=== PATIENT | male | born 1955 | race Caucasian/White ===

== ENCOUNTER 2023-11-27 13:49 | Emergency (ER) | payer OTHER, SELFPAY ==
--- NOTE | ~2023-11-27 | CT_ITS ---
EXAMINATION: CT ABDOMEN AND PELVIS WITHOUT AND WITH CONTRAST CLINICAL INFORMATION: Pain with hematuria. COMPARISON: None available. TECHNIQUE: Noncontrast CT of the abdomen and pelvis is performed followed by split bolus contrast-enhanced images using 99 mL Omnipaque 350 contrast.? Postcontrast imaging is performed during the combined nephrogram and excretion phase. Sagittal and coronal reformatted images were obtained on the technologist's workstation for both the precontrast and postcontrast phases. This CT examination was performed using dose optimization techniques as appropriate, variously including the following: *Automated exposure control *Adjustment of mA and/or kV according to patient size (this includes techniques or standardized protocols for targeted exams where dose is matched to indication/reason for exam; i.e. extremities or head) *Use of iterative reconstruction technique DLP: 1026 mGy-cm FINDINGS: LUNG BASES: The visualized lung bases are unremarkable. LIVER, GALLBLADDER, AND BILIARY TREE: The liver is normal in size, shape, and attenuation. No focal hepatic lesion or biliary ductal dilatation is present. The gallbladder is unremarkable with no evidence of radiopaque gallstones, gallbladder wall thickening, or obvious pericholecystic inflammatory changes. PANCREAS: Unremarkable. SPLEEN: Unremarkable. ADRENAL GLANDS: Unremarkable. KIDNEYS AND URETERS: The kidneys are normal in size, shape, and attenuation. No hydronephrosis, hydroureter, or calculi seen. No perinephric stranding. Parapelvic cysts left kidney. No follow-up imaging is recommended for simple renal cyst.. BLADDER: Unremarkable. GASTROINTESTINAL TRACT: The small and large bowel are unremarkable. The appendix is unremarkable. ABDOMINAL WALL: No significant hernia is appreciated. LYMPH NODES: Normal. VASCULAR: Unremarkable. PELVIC VISCERA: Prostate measures 5.5 cm transverse. OSSEUS STRUCTURES: Degenerative changes of lumbar spine. Vacuum disc changes at L5-S1. Facet joint arthrosis at the lumbosacral junction. Small marginal bone spurs at the endplates of the vertebrae. Mild degenerative joint disease of the hip joints bilateral. CT/CT urogram IMPRESSION: 1. No acute abnormality CT scan abdomen pelvis. 2. Normal kidneys, ureter and bladder. 3. Prostatomegaly.
[2023-11-27 13:56] VITALS: BP 153/88; PULSE 72; RESP 16; TEMP 36.6; O2SAT 97; BMI 26.2
--- NOTE | 2023-11-27 13:56 | ED_ITS ---
HPI - General Adult General Chief complaint: Urogenital-Male Stated complaint: Blood in urine Time Seen by Provider: 11/27/23 15:34 Source: patient Mode of arrival: ambulatory Limitations: no limitations History of Present Illness HPI narrative: 68 yo male who presents to the ED with complaint of hematuria starting this AM. patient notes that he was urinating bright red blood but with time urine cleared somewhat and now looks orange. patient states that he has been experiencing very mild lower back pain and lower abdomen pain yesterday but not today. He also notes some mild dysuria today. He denies fever, chills, nausea, vomiting, urinary frequency, urgency or retention. Patient denies prior history of kidney stones or UTI. Patient takes low dose aspirin daily he is not on any other anticoagulation. Denies any recent trauma. Related Data Allergies Allergy/AdvReac Type Severity Reaction Status Date / Time No Known Allergies Allergy Verified 11/27/23 13:59 Review of Systems 2 Review of Systems: As noted in HPI Yes all other systems are reviewed and are negative PMFSH Social History Social History Advance Directives: No Advance Directives Information Provided: Yes Do you have a plan to hurt others: No Plan Physical Exam ED Vital Signs: Vital Signs - 24 hr 11/27/23 13:56 Temperature 97.8 F Pulse Rate 72 Respiratory Rate 16 Blood Pressure 153/88 H Pulse Oximetry 97 Oxygen Delivery Method Room Air BMI result Body Mass Index 26.2 Const General: healthy appearing, comfortable, no acute distress and alert Nutritional Appearance: well nourished Orientation/consciousness: patient oriented x3 Limitations: no limitations HENMT Head: Yes normal to inspection Ears: external ears normal General nose exam: Normal external nose present Mouth: Normal oral and palatal mucosa present and moist mucous membranes Eyes General: appearance normal, both eyes and all related structures Pupils: Equal, round and reactive pupils present Neck Neck: Yes normal visual inspection, Yes full ROM and Yes no lymphadenopathy Resp Effort & Inspection: normal respiratory effort and able to speak in complete sentences Auscultation: clear to auscultation bilaterally Cardio Rate: regular rate Rhythm: regular rhythm GI Inspection: Yes normal to inspection Palpation (GI): Soft to palpation and Other GI palpation findings present (non tender; not distended) Auscultation: normal bowel sounds General: Yes no CVA tenderness Back/Spine/Pelvis Back: no CVA tenderness Skin General skin exam: no rashes or lesions noted and turgor normal Neuro General: patient oriented x3 Cranial nerves: Yes Equal, round and reactive pupils present and Yes Bilaterally intact EOM present Cognition (Neuro): normal cognition Gait exam (Neuro): Normal gait present Motor exam (neuro): 5/5 motor strength present throughout Extrem General: Yes normal to inspection, Yes full ROM and Yes capillary refill normal Course Course Course Narrative: This is an RME: Additional HPI, ROS, PE not included below will be deferred to primary provider. 68 yo m presents with blood in urine since this morning. Denies blood thinners, rectal bleeding, pain. Reports mild abdominal pain and back pain. Medications Administered Discontinued Medications Generic Name Dose Route Start Last Admin Trade Name Freq PRN Reason Stop Dose Admin Iohexol 100 ml 11/27/23 16:25 11/27/23 16:25 Iohexol 350 Mg/Ml 100 Ml Infus..Btl IV 11/27/23 16:26 100 ml ONCE ONE Administration Medical Decision Making Medical Decision Making [facility] Narrative: 68 yo male who presents to the ED with complaint of gross hematuria HPI and physical exam as above. Upon presentation patient is hemodynamically stable, alert and oriented X3, afebrile, vital signes are reassuring; patient is not ill or toxic appearing, no acute distress. Laboratory results are without leukocytosis or significant metabolic derangement, kidney function is WNL. Urinalysis is notable for 3+ blood, however, no signs of pyuria. Urine culture is pending; would consider treating with abx if culture is positive. CT urogram showed: 1. No acute abnormality CT scan abdomen pelvis. 2. Normal kidneys, ureter and bladder. 3. Prostatomegaly. Discussed results of evaluation with the patient. The cause of hematuria is not quite clear at this time, however, doubt any acute etiologies that would require immediate intervention. Advised patient that he will be notified about urine culture results and treated if appropriate. advised on supportive care and outpatient follow up with PCP and urology for further management. Provided contact information for local urology office for patient to call and schedule an appointment. Discussed with the patient when to seek medical attention or return to the ED for re-evaluation. Patient expressed understanding and agreed to the treatment plan. Admission/Observation Consideration of admission/observation: Escalation of care including admission/observation considered Lab Data [facility] Lab Attestation statement: I reviewed the patient's lab results. 11/27/23 14:26 11/27/23 14:26 Labs: Lab Results 11/27/23 Range/Units 14:26 WBC 7.7 (4.8-10.8) X10*3/uL RBC 4.97 (4.60-5.80) X10*6/uL Hgb 14.8 (14.0-18.0) g/dl Hct 43.4 (42.0-52.0) % MCV 87.3 (80.0-98.0) fL MCH 29.8 (27.0-33.0) pg MCHC 34.1 (31.0-36.0) g/dl RDW 13.0 (11.0-16.0) % Plt Count 246 (160-400) X10*3/uL MPV 10.1 (9.4-12.4) fL Immature Gran % (Auto) 0.3 (0.0-0.4) % Neut % (Auto) 73.6 H (45-73) % Lymph % (Auto) 16.6 L (20-40) % [place] % (Auto) 7.7 (2-11) % Eos % (Auto) 1.4 (0-4) % Baso % (Auto) 0.4 (0-2) % Lymph # (Auto) 1.3 (1.2-4.9) X10*3/uL [place] # (Auto) 0.6 (0.1-1.2) X10*3/uL Eos # (Auto) 0.1 (0.0-0.4) X10*3/uL Baso # (Auto) 0.0 (0.0-0.2) X10*3/uL Abs Immat Gran (auto) 0.02 (0.00-0.03) X10*3/uL Absolute Neuts (auto) 5.6 (2.0-8.3) x10*3/uL Absolute Nucleated RBC 0.000 (0.0-0.012) X10*3/uL Nucleated RBC % (auto) 0.0 (0.0-0.2) /100WBC PT 12.1 (11.1-13.3) SEC INR 1.0 (0.9-1.1) Sodium 139 (135-145) mmol/L Potassium 3.9 (3.3-5.1) mmol/L Chloride 105 (96-108) mmol/L Carbon Dioxide 25 (22-29) mmol/L Anion Gap 13 (12-20) BUN 14 (9-16) mg/dL Creatinine 0.97 (0.5-1.4) mg/dL Estim Creat Clear Calc 76.3 Estimated GFR > 60 Random Glucose 114 (60-115) mg/dL Calcium 9.7 (8.4-10.2) mg/dL Magnesium 2.3 (1.6-2.6) mg/dL Total Bilirubin 0.8 (0.0-1.0) mg/dL AST 17 (5-37) U/L ALT 14 (0-40) U/L Alkaline Phosphatase 55 (39-117) U/L Total Protein 7.3 (6.5-8.0) g/dL Albumin 4.5 (3.5-5.0) g/dL Urine Color [place] A Urine Appearance Cloudy Urine pH 5.5 (5.0-9.0) Ur Specific [place] 1.020 (1.005-1.025) Urine Protein 30 (1+) H (Neg-Trace) mg/dL Urine Glucose (UA) Negative (Negative) mg/dL Urine Ketones Negative (Negative) mg/dL Urine Blood Large (3+) H (Negative) Urine Nitrite Negative (Negative) Ur Leukocyte Esterase Trace H (Negative) Urine RBC >20 H (0-2) /HPF Urine WBC 0-5 (0-5) /HPF Ur Squamous Epith Cells 0-2 (0-2) /HPF Urine Bacteria None Seen (None Seen) Hyaline Casts 0-2 (0-2) /LPF Independent Interpretation I performed an independent interpretation of an: CT Scan Radiology Impression Discussion of test interpretation with radiology: I have reviewed the radiologist's reading. Independent Historian Clinical information obtained from an independent historian. History obtained from or confirmed by: Spouse Discharge Plan Discharge Clinical Impression: Hematuria Patient Disposition: Home, Self-Care Instructions: Hematuria (ED) Additional Instructions: Your laboratory results and CT imaging showed no acute abnormalities that would require immediate intervention. CT imaging showed enlarged prostate, we recommend close follow up with urology specialist for further evaluation and management. Urinalysis was notable for blood in the urine, however, showed no obvious signs of infection. Urine culture is still in the process and we will notify you about the results if any abnormalities identifies. At home, make sure to drink plenty of fluids to stay hydrated. Follow up with your PCP for observation. Return to the ED for any new or concerning symptoms. Referrals: [facility] [Provider Group] Discharge Date/Time: 11/27/23 18:23 Print Language: Serbian
[2023-11-27 14:33] LABS: Basophils Percent Auto 0.4 % (0-2); Eosinophils Absolute Auto 0.1 X10*3/uL (0.0-0.4); Eosinophils Percent Auto 1.4 % (0-4); Hematocrit 43.4 % (42.0-52.0); Hemoglobin 14.8 g/dl (14.0-18.0); Imm Gran Abs Auto 0.02 X10*3/uL (0.00-0.03); Imm Gran Pct Auto 0.3 % (0.0-0.4); Lymphocytes Absolute Auto 1.3 X10*3/uL (1.2-4.9); Lymphocytes Percent Auto 16.6 % (20-40); MANUAL DIFF FLAG NO; Mean Corpuscular HGB Conc 34.1 g/dl (31.0-36.0); Mean Corpuscular Hemoglobin 29.8 pg (27.0-33.0); Mean Corpuscular Volume 87.3 fL (80.0-98.0); Mean Platelet Volume 10.1 fL (9.4-12.4); Monocytes Absolute Auto 0.6 X10*3/uL (0.1-1.2); Monocytes Percent Auto 7.7 % (2-11); Neutrophils Absolute Auto 5.6 x10*3/uL (2.0-8.3); Neutrophils Percent Auto 73.6 % (45-73); Platelet Count 246 X10*3/uL (160-400); Red Blood Count 4.97 X10*6/uL (4.60-5.80); White Blood Count 7.7 X10*3/uL (4.8-10.8)
[2023-11-27 14:44] LABS: Prothrombin Time 12.1 SEC (11.1-13.3)
[2023-11-27 14:53] LABS: Alanine Aminotransferase 14 U/L (0-40); Albumin Level 4.5 g/dL (3.5-5.0); Alkaline Phosphatase 55 U/L (39-117); Anion Gap 13 (12-20); Aspartate Amino Transferase 17 U/L (5-37); Bilirubin Total 0.8 mg/dL (0.0-1.0); Blood Urea Nitrogen 14 mg/dL (9-16); Calcium 9.7 mg/dL (8.4-10.2); Carbon Dioxide 25 mmol/L (22-29); Chloride 105 mmol/L (96-108); Creatinine Clr Calc Pharmacy 76.3; Estimated Glomerular Filt Rate > 60; Glucose Random 114 mg/dL (60-115); Magnesium 2.3 mg/dL (1.6-2.6); Potassium 3.9 mmol/L (3.3-5.1); Sodium 139 mmol/L (135-145); Total Protein 7.3 g/dL (6.5-8.0)
[2023-11-27 15:12] LABS: Appearance Urine Cloudy; Bacteria Urine None Seen (None Seen); Color Urine Orange; Glucose Urine UA Negative (Negative); Hyaline Casts Urine 0-2 /LPF (0-2); Leukocyte Esterase Urine Trace (Negative); Nitrite Urine Negative (Negative); PH 5.5 (5.0-9.0); RBC Urine >20 /HPF (0-2); Squamous Epithelial Cell Urine 0-2 /HPF (0-2); UMIC TRIGGER UACC YES; Urine Blood Large (3+) (Negative); Urine Ketones Negative (Negative); Urine Protein 30 (1+) mg/dL (Neg-Trace); WBC Urine 0-5 /HPF (0-5)
[2023-11-27] MEDS: iohexoL 350 MG/ML 100 ML INFUS..BTL IV (16:25)
[2023-11-27 18:21] VITALS: BP 148/76; PULSE 77; RESP 18; TEMP 36.3; O2SAT 97
== END 2023-11-27 18:23 | disposition home or self-care (01) ==
PROVIDERS: Physician Assistant; Emergency Provider Emergency Medicine
DX: R31.9 Hematuria, unspecified (principal); R30.0 Dysuria; M54.50 Low back pain, unspecified; R10.2 Pelvic and perineal pain; Z79.899 Other long term (current) drug therapy
CPT/HCPCS: 36415; 74178; 80053; 81001; 81003; 83735; 85025; 85610; 99282; 99284; Q9967

== ENCOUNTER 2023-11-29 08:56 | Outpatient (AMB) | payer OTHER, SELFPAY ==
[2023-11-29 08:57] VITALS: BP 108/62; PULSE 59; O2SAT 97; BMI 27.3
--- NOTE | 2023-11-29 08:57 | HO.NEPHOV_ITS ---
Vital Signs 11/29/23 08:57 Height 5 ft 10.5 in Weight 193 lb BMI 27.3 BP 108/62 Blood Pressure Location Lt brachial Position Sitting Pulse 59 Pulse Source Pulse Oximeter Pulse Oximetry (%) 97 Oxygen Delivery Method Room Air Intake Visit Reasons: HDF for urine in blood / Self referral Accompanied by: Spouse Allergies No Known Allergies Allergy (Verified 11/29/23 09:00) HPI Comments Details: 68-year-old man who was being enjoying reasonably good health , recently had an episode of painless hematuria. Prior to this episode he traveled in his car to attend a wedding for about 3 hours. Hematuria started 3 days ago, he went to the emergency room yesterday. He had a CT urogram which was unremarkable except for an enlarged prostate -measuring 5.5 cm The renal function was normal. Urinalysis showed deborah blood with RBCs and 30 mg proteinuria. Otherwise unremarkable. He has a history of atrial fibrillation. He has not on anticoagulation. He is on aspirin 81 mg a day. History is obstructive sleep apnea and uses CPAP machine No history of hypertension diabetes mellitus or kidney stones. No history of smoking No dysuria no line pain. No polyuria polydipsia. No shortness of breath and palpitations. No fever no rash. No edema. All systems were reviewed [facility] Social History (Updated 11/29/23 @ 09:00 by Sierra Berger) Patient Tobacco Use Status: Never used Tobacco Physical Exam Vital Signs: Last Vital Signs Pulse 59 11/29/23 08:57 Pulse Ox 97 11/29/23 08:57 Oxygen Delivery Method Room Air 11/29/23 08:57 BMI result Body Mass Index 27.3 Const General: comfortable Nutritional Appearance: well nourished Orientation/consciousness: patient oriented x3 HEENT Head: No normal to inspection Mouth: moist mucous membranes Neck Neck: Yes supple and Yes no JVD Resp Auscultation: clear to auscultation bilaterally, no rales and rub present Cardio Jugular venous distension: no JVD Palpation: no palpable S3 and no palpable S4 Heart sounds: no rubs GI Palpation (GI): Soft to palpation and nontender Percussion: No Fluid wave present General: Yes no CVA tenderness Back/Spine/Pelvis Back: no CVA tenderness Skin General skin exam: no rashes or lesions noted Neuro General: patient oriented x3 Extrem General: Yes no pedal edema and No clubbing Results Reviewed Results Reviewed: CT scan 11/27/23 KIDNEYS AND URETERS: The kidneys are normal in size, shape, and attenuation. No hydronephrosis, hydroureter, or calculi seen. No perinephric stranding. Parapelvic cysts left kidney. No follow-up imaging is recommended for simple renal cyst.. Nephrology Results: Hgb 14.8 g/dl (14.0-18.0) 11/27/23 WBC 7.7 X10*3/uL (4.8-10.8) 11/27/23 Plt Count 246 X10*3/uL (160-400) 11/27/23 Sodium 139 mmol/L (135-145) 11/27/23 Potassium 3.9 mmol/L (3.3-5.1) 11/27/23 Chloride 105 mmol/L (96-108) 11/27/23 Carbon Dioxide 25 mmol/L (22-29) 11/27/23 BUN 14 mg/dL (9-16) 11/27/23 Creatinine 0.97 mg/dL (0.5-1.4) 11/27/23 Calcium 9.7 mg/dL (8.4-10.2) 11/27/23 Urine Protein 30 (1+) mg/dL (Neg-Trace) H 11/27/23 Assessment & Plan Assessment & Plan (1) Hematuria: Code(s): R31.9 - Hematuria, unspecified Category: Medical Qualifiers: Hematuria type: gross Qualified Code(s): R31.0 - Gross hematuria Plan 68-year-old man with painless hematuria. We discussed both renal and non renal causes. Renal causes seem unlikely based on a clinical picture nevertheless we will obtain basic serology to rule this out. Extrarenal causes seem unlikely especially with a history of enlarged prostate. Workup as outlined below He needs a urology evaluation including cystoscopy. I shall make the referral. In the meantime I asked him to hold off on aspirin until hematuria subsides. Increase p.o. fluid intake. I have answered all his questions and returned to the office in the next 6 weeks Orders: Orders Anti DNA DS Antibody Today R31.0 - Gross hematuria Neutrophil Cytoplasma Ab Today R31.0 - Gross hematuria Myeloperoxidase Antibody Today R31.0 - Gross hematuria Protein Electrophoresis, Serum Today R31.0 - Gross hematuria Complement C3 Today R31.0 - Gross hematuria UA and rflx microscopic Today R31.0 - Gross hematuria Proteinase 3 PR3 Antibodies Today R31.0 - Gross hematuria Anti Glomerular Basement Memb Today R31.0 - Gross hematuria Complement C4 Today R31.0 - Gross hematuria Total Protein Urine Random Today R31.0 - Gross hematuria Creatinine Urine Today N05.9 - Unspecified nephritic syndrome with unspecified morphologic changes, R31.0 - Gross hematuria Urine Cytology Today R31.0 - Gross hematuria Urine Culture Today R31.0 - Gross hematuria Referrals Urology Referral R31.0 - Gross hematuria Coding Level of Care Code New Pt Level 4 (20678) Diagnoses Hematuria R31.0 Hematuria type: gross
== END 2023-11-29 09:24 | disposition home or self-care (01) ==
PROVIDERS: Visit Provider Internal Medicine Hypertension Specialist
DX: R31.0 Gross hematuria (principal)
CPT/HCPCS: 99204

== ENCOUNTER 2023-11-29 08:56 | Outpatient (REF) | payer OTHER, SELFPAY ==
[2023-11-29 12:16] LABS: Urine Cytology See Pathology rpt
[2023-11-29 12:26] LABS: Appearance Urine Clear; Color Urine Red; Glucose Urine UA Negative (Negative); Leukocyte Esterase Urine Trace (Negative); Nitrite Urine Negative (Negative); PH 7.5 (5.0-9.0); Specific Gravity - Urine <= 1.005 (1.005-1.025); UMIC TRIGGER UA YES; Urine Blood Large (3+) (Negative); Urine Ketones Negative (Negative); Urine Protein 30 (1+) mg/dL (Neg-Trace)
[2023-11-29 12:27] LABS: Bacteria Urine None Seen (None Seen); Hyaline Casts Urine 0-2 /LPF (0-2); RBC Urine >20 /HPF (0-2); Squamous Epithelial Cell Urine 0-2 /HPF (0-2); WBC Urine 0-5 /HPF (0-5)
[2023-11-29 12:44] LABS: Creatinine Urine 21.16 mg/dL; Total Protein Urine Random 11 mg/dL (<12)
[2023-11-30 14:03] LABS: Neutrophil Cyto Ab Screen NEGATIVE (NEGATIVE)
[2023-11-30 14:08] LABS: Anti DNA DS Antibody <1 IU/mL; Anti Glomerular Basement Memb <1.0 AI; Myeloperoxidase Antibody <1.0 AI; Proteinase 3 PR3 Antibodies <1.0 AI
[2023-11-30 14:54] LABS: Prot Elec - Albumin 4.4 g/dL (3.8-4.8); Prot Elec - Alpha1 0.2 g/dL (0.2-0.3); Prot Elec - Alpha2 0.6 g/dL (0.5-0.9); Prot Elec - Beta 1 0.4 g/dL (0.4-0.6); Prot Elec - Beta 2 0.3 g/dL (0.2-0.5); Prot Elec - Gamma 0.9 g/dL (0.8-1.7); Prot Elec - Total Protein 6.8 g/dL (6.1-8.1)
[2023-12-01 13:53] LABS: Complement C3 117 mg/dL (82-185)
== END 2023-11-29 08:57 | disposition home or self-care (01) ==
LOC: HO.LAB 08:56
PROVIDERS: PCP Physician Assistant Medical; Visit Provider Internal Medicine Hypertension Specialist
DX: R31.0 Gross hematuria (principal); N05.9 Unspecified nephritic syndrome with unspecified morphologic changes
CPT/HCPCS: 36415; 81001; 82570; 83520; 84156; 84165; 86021; 86036; 86160; 86225; 87086; 88112

== ENCOUNTER 2024-01-10 11:07 | Outpatient (AMB) | payer OTHER, SELFPAY ==
[2024-01-10 11:09] VITALS: BP 110/66; PULSE 63; O2SAT 97; BMI 26.9
--- NOTE | 2024-01-10 11:09 | HO.NEPHOV ---
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 Prior to this episode he traveled in his car to attend a wedding for about 3 hours. Hematuria started 3 days ago, he went to the emergency room yesterday. He had a CT urogram which was unremarkable except for an enlarged prostate -measuring 5.5 cm The renal function was normal. Urinalysis showed deborah blood with RBCs and 30 mg proteinuria. Otherwise unremarkable. He has a history of atrial fibrillation. He has not on anticoagulation. He is on aspirin 81 mg a day. History is obstructive sleep apnea and uses CPAP machine No history of hypertension diabetes mellitus or kidney stones. No history of smoking No dysuria no line pain. No polyuria polydipsia. No shortness of breath and palpitations. No fever no rash. No edema. All systems were reviewed 01/10/2024. Seen by Urology. Cystoscopy was done by Dr. Basurto. So far cytology has been negative. He had a stent placed on the ureter and later removed. No definite etiology has been determined yet. he has going for a follow-up ultrasonogram. No further hematuria. [facility] Social History Patient Tobacco Use Status: Never used Tobacco Physical Exam Vital Signs: Last Vital Signs Pulse 63 01/10/24 11:09 BP 110/66 01/10/24 11:09 Pulse Ox 97 01/10/24 11:09 Oxygen Delivery Method Room Air 01/10/24 11:09 BMI result Body Mass Index 26.9 Results Reviewed Nephrology Results: Hgb 14.8 g/dl (14.0-18.0) 11/27/23 WBC 7.7 X10*3/uL (4.8-10.8) 11/27/23 Plt Count 246 X10*3/uL (160-400) 11/27/23 Sodium 139 mmol/L (135-145) 11/27/23 Potassium 3.9 mmol/L (3.3-5.1) 11/27/23 Chloride 105 mmol/L (96-108) 11/27/23 Carbon Dioxide 25 mmol/L (22-29) 11/27/23 BUN 14 mg/dL (9-16) 11/27/23 Creatinine 0.97 mg/dL (0.5-1.4) 11/27/23 Calcium 9.7 mg/dL (8.4-10.2) 11/27/23 Urine Protein 30 (1+) mg/dL (Neg-Trace) H 11/29/23 Urine Creatinine 21.16 mg/dL 11/29/23 Assessment & Plan Assessment & Plan (1) Hematuria: Code(s): R31.9 - Hematuria, unspecified Category: Medical Qualifiers: Hematuria type: gross Qualified Code(s): R31.0 - Gross hematuria (2) Hematuria of unknown etiology: Code(s): R31.9 - Hematuria, unspecified Category: Medical Plan 68-year-old man with painless hematuria. Hematuria is primarily due to urological cause. Status post cystoscopy. Exact etiology is yet to be determined. Serological workup was negative;no evidence of glomerulonephritis. She will repeat renal panel today along with CBC. Encouraged to follow up with Urology. Shall l see him again as needed. Orders: Orders Complete Blood Count no Diff Today R31.9 - Hematuria, unspecified Basic Metabolic Panel Today R31.9 - Hematuria, unspecified Coding Level of Care Code Est Pt Level 4 (28298) Diagnoses Hematuria R31.0 Hematuria type: gross Hematuria of unknown etiology R31.9
== END 2024-01-10 11:36 | disposition home or self-care (01) ==
PROVIDERS: Visit Provider Internal Medicine Hypertension Specialist
DX: R31.0 Gross hematuria (principal); R31.9 Hematuria, unspecified
CPT/HCPCS: 99214

== ENCOUNTER → 2024-01-10 11:07 | Outpatient (BNVA) | payer OTHER, SELFPAY | PROVIDERS: Visit Provider Internal Medicine Hypertension Specialist | DX: R31.0 Gross hematuria (principal) ==

== ENCOUNTER 2024-01-10 11:38 | Outpatient (REF) | payer OTHER, SELFPAY ==
[2024-01-10 18:28] LABS: Appearance Urine Turbid; Color Urine Yellow; Glucose Urine UA Negative (Negative); Leukocyte Esterase Urine Negative (Negative); Nitrite Urine Negative (Negative); PH 5.5 (5.0-9.0); UMIC TRIGGER UA YES; Urine Blood Trace (Negative); Urine Ketones Negative (Negative); Urine Protein Negative (Neg-Trace)
[2024-01-10 18:47] LABS: Hemoglobin 14.8 g/dl (14.0-18.0); Mean Corpuscular HGB Conc 33.6 g/dl (31.0-36.0); Mean Corpuscular Hemoglobin 29.9 pg (27.0-33.0); Mean Corpuscular Volume 88.9 fL (80.0-98.0); Platelet Count 255 X10*3/uL (160-400); Red Blood Count 4.95 X10*6/uL (4.60-5.80); Red Cell Distribution Width 12.8 % (11.0-16.0); White Blood Count 6.2 X10*3/uL (4.8-10.8)
[2024-01-10 18:57] LABS: Bacteria Urine None Seen (None Seen); Hyaline Casts Urine 0-2 /LPF (0-2); RBC Urine 0-2 /HPF (0-2); Squamous Epithelial Cell Urine 0-2 /HPF (0-2); WBC Urine 0-5 /HPF (0-5)
[2024-01-10 19:03] LABS: Anion Gap 11 (12-20); Blood Urea Nitrogen 15 mg/dL (9-16); Calcium 9.5 mg/dL (8.4-10.2); Carbon Dioxide 27 mmol/L (22-29); Chloride 104 mmol/L (96-108); Estimated Glomerular Filt Rate > 60; Glucose Random 86 mg/dL (60-115); Potassium 4.1 mmol/L (3.3-5.1); Sodium 138 mmol/L (135-145)
== END 2024-01-10 11:39 | disposition home or self-care (01) ==
LOC: HO.HKASLDS 11:38
PROVIDERS: Visit Provider Internal Medicine Hypertension Specialist
DX: R31.9 Hematuria, unspecified (principal)
CPT/HCPCS: 36415; 80048; 81001; 85027

== ENCOUNTER 2025-07-02 09:54 | Outpatient (AMB) | payer OTHER, SELFPAY ==
--- OUTSIDE RECORDS SUMMARY | 2025-07-01 10:45 | XMS_ITS | Encounter Summary ---
Author Organization [facility] Address [address] [place] [address] Care Team Providers Care Manager Shell Name Role Phone Keny Monzon MD Primary Care Provider [phone] Reason for Visit * Reason Comments Follow-up Six mo f/u Encounter Details Date Type Department Care Team (Late st Contact Info) Description 07/01/2025 10:45 AM EST Office Visit Adult Medicine [address] [phone] Krystal Vizcarra PA [address] [place] [address] Benign prostatic hyperplasia without lower urinary tract symptoms (Primary Dx); Mixed hyperlipidemia; Paroxysmal A-fib (CMS/HCC V24, CMS/HCC V28); Prediabetes; KALEB on CPAP; Tremor of both hands; Screening for diabetes mellitus; Screening cholesterol level; Need for prophylactic vaccination and inoculation against influenza Social History Tobacco Use Types Packs/Day Years Used Date Smoking Tobacco: Never Smokeless Tobacco: Never Tobacco Cessation:Counseling Given: Not Answered Alcohol Use Standard Drinks/Week Comments No 0 (1 standard drink = 0.6 oz pur e alcohol) Housing Instability Answer Date Recorde d Are you worried that in the next 2 months you may not have stable housing? No 12/11/2024 Food Access & Nutrition Answer Date Rec orded Do you have access to a vari ety of food including fruits and vegetables? Yes 12/11/2024 Access to Healthcare Answer Date Record ed Within the last 3 months, ho w many times did you visit the emergency department for your medical care? 0 12/11/2024 Health Literacy Answer Date Recorded How often do you need to hav e someone help you when you read instructions, pamphlets, or other written material from your doctor or pharmacy? Never 12/11/2024 Caregiver: How often do you need to have someone help you when you read instructions, pamphlets, or other written material from your doctor or pharmacy? Not on file 12/11/2024 Financial Risk Answer Date Recorded How hard is it for you to pa y for the very basics like food, housing, medical care, and air conditioning / heating? Patient declined 12/11/2024 Transportation Answer Date Recorded Has the lack of transportati on kept you from meetings, work, or from getting things needed for daily living? No Has the lack of transportati on kept you from medical appointments or from getting medications? No 12/11/2024 Social Isolation Answer Date Recorded How often do you feel lonely or isolated from th ose around you? Never 12/11/2024 Food Risk Answer Date Recorded Within the past 12 months we worried whether our food would run out before we got money to buy more. Never true 12/11/2024 Within the past 12 months th e food we bought just didn't last and we didn't have money to get more. Never true 12/11/2024 Dependent Care Answer Date Recorded Do you need help finding or paying for care for your loved ones. For example, child and adolescent therapist or elderly care for an older adult? No 12/11/2024 Education Answer Date Recorded Do you think completing more education or training, like finishing a GED, going to college, or learning a trade, would be helpful for you? No 12/11/2024 Employment and Income Answer Date Recor ded During the last four weeks, have you been actively looking for work? No 12/11/2024 Living Situation Answer Date Recorded What is your living situation? Unrecognized valu e 12/11/2024 Sex and Gender Information Value Date Recorded Sex Assigned at Not on file Legal Sex Male 1:36 PM EST Gender Identity Not on file Sexual Orientation Not on file documented as of this encounter Last Filed Vital Signs Vital Sign Reading Time Taken Comments Blood Pressure 123/69 07/01/2025 10:19 AM EST Pulse 59 07/01/2025 10:19 AM EST Temperature 35.9 C (96.7 F) 07/01/2025 10:19 AM EST Respiratory Rate 15 07/01/2025 10:19 AM EST Oxygen Saturation 99% 07/01/2025 10:19 AM EST Inhaled Oxygen Concentration - - Weight 91.4 kg (201 lb 6.4 oz) 07/01/2025 10:19 AM EST Height 180.3 cm (5' 11 ) 07/01/2025 10:19 AM EST Body Mass Index 28.09 07/01/2025 10:19 AM EST documented in this encounter Progress Notes * NICHO Jain - 07/01/2025 10:45 AM EST CHIEF COMPLAINT: Follow-up (Six mo f/u) IDENTIFIER: Lukas Mccarthy is a 69 y.o. old male. Past medical history: paroxysmal A-fib, hyperlipidemia, prediabetes, KALEB on CPAP, BPH, renal calculi, left knee replacement surgery History of Present Illness The patient is a 69-year-old male with a history of paroxysmal atrial fibrillation and hyperlipidemia. 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 for PSA checks Benign Prostatic Hyperplasia (BPH) - Has BPH Orthopedic Issues - Recently experienced left elbow pain, left wrist pain, and bilateral carpal tunnel syndrome, managed by pain management specialist - Reports arthritis in one hand and tendinitis in the other, managed with braces - Brace for tendinitis is more effective - Cortisone injection discussed but not scheduled - Pain well-managed Neurological Concerns - Scheduled to see neurologist tomorrow for involuntary hand twitch observed by Other Information - Monitors morning blood glucose, typically 106-107 - 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 Last colonoscopy was 09/17/2027 and repeat in 10 years. Report has been printed and sent for scanning. He follows with urologist for PSA checks. He is up-to-date for Td vaccine and pneumonia vaccine. Flu vaccination was updated today. ROS: See HPI PAST MEDICAL HISTORY: Patient Active Problem List Diagnosis Date Noted Benign prostatic hyperplasia without lower urinary tract symptoms 12/18/2024 Prediabetes 12/18/2024 Osteoarthritis of left knee 06/20/2024 Wears hearing aid 05/01/2024 KALEB on CPAP 05/01/2024 Mixed hyperlipidemia 05/01/2024 Paroxysmal A-fib ([facility] V24, [facility] V28) 06/12/2023 Overweight 12/23/2015 Impaired fasting glucose 02/20/2006 Osteoarthritis 11/25/2005 Surgical History[1] SOCIAL HISTORY: Social History Tobacco Use Smoking status: Never Smokeless tobacco: Never Substance Use Topics Alcohol use: No FAMILY HISTORY: Family History[2] Family Status Relation Name Status Father (Not Specified) No partnership data on file MEDICATIONS DISCONTINUED/REORDERED: Medications Discontinued During This Encounter Medication Reason predniSONE (DELTASONE) 10 mg tablet Therapy completed ACTIVE MEDICATIONS: Medications Taking[3] ALLERGIES: Current Allergies[4] PHYSICAL EXAM: Vitals: 07/01/25 1019 BP: 123/69 Pulse: 59 Resp: 15 Temp: 35.9 ??C (96.7 ??F) SpO2: 99% Physical Exam Constitutional: Appearance: Normal appearance. He is not ill-appearing. Cardiovascular: Rate and Rhythm: Normal rate and regular rhythm. Heart sounds: No murmur heard. Pulmonary: Effort: Pulmonary effort is normal. Breath sounds: Normal breath sounds. No wheezing. Musculoskeletal: Right lower leg: No edema. Left lower leg: No edema. Neurological: Mental Status: He is alert. LABS: Results for orders placed or performed in visit on 12/26/24 Thyroid stimulating hormone with reflex to free t4 and free t3 Collection Time: 12/26/24 7:33 AM Result Value Ref Range TSH 3.12 0.40 - 4.00 mcIU/mL Lipid panel with reflex to direct LDL Collection Time: 12/26/24 7:33 AM Result Value Ref Range Cholesterol 160 0 - 200 mg/dL Triglycerides 57 0 - 150 mg/dL HDL 59 >=40 mg/dL LDL Calculated 90 0 - 100 mg/dL VLDL Cholesterol Neal 11.4 mg/dL Non HDL Chol. (LDL+VLDL) 101 <145 mg/dL Chol/HDL Ratio 2.7 0.0 - 4.4 Magnesium Collection Time: 12/26/24 7:33 AM Result Value Ref Range Magnesium 2.2 1.9 - 2.6 mg/dL Basic metabolic panel Collection Time: 12/26/24 7:33 AM Result Value Ref Range Sodium 142 133 - 145 mmol/L Potassium 4.6 3.5 - 5.5 mmol/L Chloride 110 96 - 110 mmol/L CO2 27 21 - 32 mmol/L Anion Gap 5 3 - 11 Glucose 119 (H) 70 - 100 mg/dL BUN 17 5 - 25 mg/dL Creatinine 0.83 0.70 - 1.30 mg/dL eGFR 95 >=60 mL/min/1.73m2 BUN/Creatinine Ratio 20.5 Calcium 9.3 8.5 - 10.5 mg/dL Hemoglobin A1c Collection Time: 12/26/24 7:33 AM Result Value Ref Range Hemoglobin A1C 5.4 <6.5 % Mean Bld Glu Estim. 108 mg/dL IMAGING: No recent imaging IMPRESSION: 1. Benign prostatic hyperplasia without lower urinary tract symptoms 2. Mixed hyperlipidemia 3. Paroxysmal A-fib (CMS/HCC V24, CMS/HCC V28) 4. Prediabetes 5. KALEB on CPAP 6. Tremor of both hands 7. Screening for diabetes mellitus 8. Screening cholesterol level 9. Need for prophylactic vaccination and inoculation against influenza Assessment & Plan 1. Paroxysmal atrial fibrillation: Stable. 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 - Refill Metoprolol 25 mg AM, 12.5 mg PM. 2. Hyperlipidemia: Stable. LDL 90. - Refill Lipitor 10 mg daily. 3. Benign prostatic hyperplasia: Stable. - Urologist follow-up for PSA checks has been normal. 4. Arthritis and tendinitis of hand and wrist: Improved - Braces helpful. - Cortisone shot if needed. - Continue follow up with orthopedic as needed. 5. Hand tremor - Neurologist appointment tomorrow. 6. Prediabetes: Stable. Blood sugar 106-107 AM. - Continue monitoring and current lifestyle. 7. KALEB - he is compliant with CPAP Follow-up: Schedule next appointment for routine physical and lab work one week prior. I have obtained verbal consent from Lukas Mccarthy prior to the recording. I have advised Lukas Mccarthy that he may refuse the recording and require the recording to be turned off at any time during this encounter. I have applied the code G2211 to this patient's visit as part of the primary care provider team dealing with multiple comorbid conditions, coordinating with the referrals and health maintenance. All questions and concerns were addressed. Lukas Mccarthy verbalizes understanding and agrees with this treatment plan. Patient was reminded to call or return to the office if any new or existing problems arise. Orders Placed This Encounter Procedures Influenza trivalent, 0.5mL (Fluad) 65yo and older Lipid panel with reflex to direct LDL Hemoglobin A1c CBC and differential Basic metabolic panel INFLUENZA TRIVALENT, 0.5ML (FLUAD) 65YO AND OLDER NICHO Jain on 07/01/2025 at 1:00 PM EST Today's documentation was made using voice recognition software.This note may contain grammatical errors secondary to this software. [1] Past Surgical History: Procedure Laterality Date COLONOSCOPY 10/02/08 PROCEDURE: VT COLONOSCOPY STOMA DX INCLUDING COLLJ SPEC SPX; COMMENT: Up to cecum, regular preparation, normal colon exam [2] Family History Problem Relation Name Age of Onset Heart attack Father Hypertension Father [3] Outpatient Medications Marked as Taking for the 07/01/25 encounter (Office Visit) with NICHO Jain Medication Sig Dispense Refill atorvastatin (LIPITOR) 10 mg tablet TAKE 1 TABLET BY MOUTH 1 TIME EACH DAY. 90 tablet 1 metoprolol tartrate (LOPRESSOR) 25 mg tablet TAKE 1 TABLET BY MOUTH EVERY MORNING AND 1/2 TAB IN THE EVENING [4] No Known Allergies documented in this encounter Plan of Treatment Upcoming Encounters Date Type Department Care Team (Late st Contact Info) Description 12/31/2025 11:30 AM EDT Office Visit Adult Medicine [address] [phone] Keny Monzon MD [address] [place] [address] Scheduled Orders Name Type Priority Associated Diagnoses Orde r Schedule Lipid panel with reflex to direct LDL Lab Routine Benign prostatic hyperplasia without lower urinary tract symptoms Mixed hyperlipidemia Paroxysmal A-fib (CMS/HCC V24, CMS/HCC V28) Prediabetes KALEB on CPAP Need for prophylactic vaccination and inoculation against influenza Screening cholesterol level Screening for diabetes mellitus Expected: 12/30/2025, Expires: 07/01/2026 Hemoglobin A1c Lab Routine Benign prostatic hyperplasia without lower urinary tract symptoms Mixed hyperlipidemia Paroxysmal A-fib (CMS/HCC V24, CMS/HCC V28) Prediabetes KALEB on CPAP Need for prophylactic vaccination and inoculation against influenza Screening cholesterol level Screening for diabetes mellitus 1 Occurrences starting 07/01/2025 until 07/01/2026 CBC and differential Lab Routine Benign prostatic hyperplasia without lower urinary tract symptoms Mixed hyperlipidemia Paroxysmal A-fib ([facility] V24, [facility] V28) Prediabetes KALEB on CPAP Need for prophylactic vaccination and inoculation against influenza Screening cholesterol level Screening for diabetes mellitus 1 Occurrences starting 07/01/2025 until 07/01/2026 Basic metabolic panel Lab Routine Benign prostatic hyperplasia without lower urinary tract symptoms Mixed hyperlipidemia Paroxysmal A-fib ([facility] V24, [facility] V28) Prediabetes KALEB on CPAP Need for prophylactic vaccination and inoculation against influenza Screening cholesterol level Screening for diabetes mellitus 1 Occurrences starting 07/01/2025 until 07/01/2026 documented as of this encounter Visit Diagnoses Diagnosis Benign prostatic hyperplasia without lower urinary tract symptoms- Primary Mixed hyperlipidemia Paroxysmal A-fib ([facility] V24, [facility] V28) Prediabetes Other abnormal glucose KALEB on CPAP Tremor of both hands Screening for diabetes mellitus Screening cholesterol level Screening for lipoid disorders Need for prophylactic vaccination and inoculation against influenza documented in this encounter Discontinued Medications Medication Sig Discontinue Reason Start Date End Da te predniSONE (DELTASONE) 10 mg tablet Take 2 tabs PO daily for 3 days then 1 tab PO daily for 4 days Therapy completed 04/14/2025 07/01/2025 documented as of this encounter Orders Immunization/Injection Count Last Ordered Date First Ordered Date INFLUENZA TRIVALENT, 0.5ML ( FLUAD) 65YO AND OLDER 1 07/01/2025 documented in this encounter Additional Health Concerns Assessment Noted Time PHQ-9 Depression Total Score: 0 12/12/19 25 10:02 AM EDT documented as of this encounter Care Teams Manager Shell Relationship Specialty Start Date End Date Keny Monzon MD [address] [place] [address] PCP - General Internal Medicine 11/19/21 documented as of this encounter
--- NOTE | 2025-07-02 10:24 | A.OFFVIS_ITS ---
Intake Visit Reasons: tremor both hands Allergies No Known Allergies Allergy (Verified 07/01/25 09:33) Medication List - Last Reconciled 07/02/25 by Jina Quezada MD atorvastatin 10 mg PO DAILY metoprolol tartrate 25 mg PO BID HPI Comments Details: This is a generally healthy 69-year-old man with a history of paroxysmal atrial fibrillation in the past for which she takes metoprolol 25 mg in the morning and 12.5 in the evening. Mild hyperlipidemia on atorvastatin 10 mg a day. Around October 2024 he started experiencing pain and numbness with tingling in both hands with the right being worse than the left. He was prescribed braces which seemed to have helped. He also has point tenderness and pain in the left 1st carpometacarpal joint of the thumb. In the summertime his noted that he was twitching his fingers around it was not a rhythmic tremor but since then it has stopped. His hand symptoms are better with the hand brace and wrist splint. 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 [facility] Medical History (Updated 07/02/25 @ 10:32 by Jina Quezada MD) Paroxysmal A-fib KALEB on CPAP Tremor of both hands Social History Patient Tobacco Use Status: Never used Tobacco Review of Systems ENT Reports hearing loss Musc Reports arthralgias and Reports numbness Neuro Details: Numbness and tingling in the hands, right worse than left Reports numbness and Reports paresthesias Physical Exam Neuro Other: ?Mini Mental Status Exam Level of Consciousness:?Alert.? Orientation:?Knows correct year, month, date, day and season.?Knows correct city, county and state. Knows correct location and floor.? Registration:?Able to register 3 objects.? Attention:?Serial 7's performed accurately.? Recall:?Able to recall 3 out of 3 objects.? Language:?Normal spontaneous speech, fluency, repetition, naming, comprehension, reading, and writing.? Total Score:?30/30.? Neurological Abnormal neurological findings:??none.? Mental Status:?Alert and oriented X 3.?Normal attention, orientation, memory, and affect.? Cranial Nerves:?Pupils are equal, round and reactive to light. Fundoscopy shows normal disc bilaterally. External occular muscles are intact. Visual alonso are full, no ptosis. Face is symmetrical, no facial weakness or droop. Facial sensations are normal. Tongue protrudes in midline. Palate elevates sy mmetrically. Shoulder shrugging is normal.? Motor Examination:?Normal muscle tone, bulk and strength.?No atrophy or fasciculations.?No drift of the extended upper extremities.?Deep tendon reflexes are 2+.?Plantars are flexor.? Motor Strength:? Proximal Muscles (out of 5):?5 Distal Muscles (out of 5):?5 Neck Flexors (out of 5):?5 Neck Extensors (out of 5):?5 Deltoid (out of 5):?5 Biceps (out of 5):?5 Triceps (out of 5):?5 Serratus Anterior (out of 5):?5 Wrist Extensors (out of 5):?5 APB (out of 5):?5 Finger Spread (out of 5):?5 Ileopsoas (out of 5):?5 Quadriceps (out of 5):?5 Hamstrings (out of 5):?5 Tibialis Anterior (out of 5):?5 Peronei (out of 5):?5 EDB (out of 5):?5 Gastrocnemius (out of 5):?5 Straight Leg Raising:?90 degrees.? Sensory Exam:?Normal light touch, temperature, pinprick, vibration and joint-position sensations.?Rhomberg sign is absent.? Coordination:?No ataxia,?no titubation,?rdxsth-ea-thyo, ufrz-ibvw-hmwi test, and rapid alternating movements were normal.? Gait Exam:?Within normal limits.? Cerebellar Signs:?Qbawzt-cr-nkrk and nulc-mg-hurs is normal.?No dysdiadochokinesia.? Extrapyramidal System:?No tremor or?rigidity, normal facial expressions.?No bradykinesia. No bradyphrenia. Normal arm swing and posture. No propulsion or retropulsion.? Speech:?Normal,?no dysphasia or dysarthria.? General Examination GENERAL APPEARANCE:??normal,?in no acute distress?,?normal,?in no acute distress.? HEAD:??normocephalic,?atraumatic.? EYES:??sclera non-icteric,?conjunctiva clear.? EARS:??auditory canal clear,?tympanic membrane intact, clear.? NOSE:??no lesions.? ORAL CAVITY:??gums normal,?mucosa moist,?no lesions.? THROAT:??clear.? NECK/THYROID:??no cervical lymphadenopathy,?thyroid normal,?neck supple, full range of motion,?no carotid bruit.? SKIN:??no rashes,?no significant birthmarks.? HEART:??S1, S2 normal,?no murmurs?,?S1, S2 normal,?no murmurs.? LUNGS:??clear anteriorly and posteriorly?,?clear anteriorly and posteriorly.? CHEST:??no gross rib deformity,?clear to auscultation.? BACK:??normal exam of spine.? MUSCULOSKELETAL:??normal.? EXTREMITIES:??no edema?,?no edema.? PERIPHERAL PULSES:??normal.? PSYCH:??alert, oriented,?cognitive function intact,?cooperative with exam?,?alert, oriented,?cognitive function intact,?cooperative with exam.? Assessment & Plan Assessment & Plan (1) Carpal tunnel syndrome on both sides: Code(s): G56.03 - Carpal tunnel syndrome, bilateral upper limbs Category: Medical (2) Osteoarthritis involving joints of upper arms, bilateral: Code(s): M19.021 - Primary osteoarthritis, right elbow; M19.022 - Primary osteoarthritis, left elbow Category: Medical Plan Nerve conduction EMG of the upper extremities to confirm carpal tunnel syndrome. Use of meloxicam 15 mg a day for 1-2 weeks at a time p.r.n. for pain in the base of his left thumb. Use of wrist splints at night and while working with his hands Orders: Orders NE nerve conduction velocity Today G56.03 - Carpal tunnel syndrome, bilateral upper limbs NE electromyogram (EMG) Today G56.03 - Carpal tunnel syndrome, bilateral upper limbs Medications: New meloxicam 15 mg PO DAILY 30 tabs 1RF Coding Level of Care Code New Pt Level 5 (53166) Diagnoses Carpal tunnel syndrome on both sides G56.03 Osteoarthritis involving joints of upper arms, bilateral M19.021; M19.022
--- OUTSIDE RECORDS SUMMARY | 2025-07-02 11:09 | XMS_ITS | Clinical Summary ---
Author Organization [facility] [address] [place] [address] [place] [phone] Phone Care Team Providers Care Hospitality Workers Name Role Phone Keny Monzon MD Primary Care Provider [phone] Allergies No known active allergies Medications metoprolol tartrate (LOPRESSOR) 25 mg tablet TAKE 1 TABLET BY MOUTH EVERY MORNING AND 1/2 TAB IN THE EVENING 01/04/20 24 Active atorvastatin (LIPITOR) 10 mg tablet TAKE 1 TABLET BY MOUTH 1 TIME EACH DAY. 90 tablet 1 06/20/20 25 Active atorvastatin (LIPITOR) 10 mg tablet Take 1 tablet (10 mg total) by mouth 1 (one) time each day. 90 tablet 1 12/27/19 25 025 Discontinued predniSONE (DELTASONE) 10 mg tablet Take 2 tabs PO daily for 3 days then 1 tab PO daily for 4 days 10 tablet 04/14/20 25 025 Discontinued(Th erapy completed) Active Problems Problem Noted Date Diagnosed Date Benign prostatic hyperplasia without lower urinary tract symptoms 12/18/2024 Prediabetes 12/18/2024 Osteoarthritis of left knee 06/20/2024 Wears hearing aid 05/01/2024 KALEB on CPAP 05/01/2024 Mixed hyperlipidemia 05/01/2024 Paroxysmal A-fib (CMS/HCC V24, CMS/HCC V28) 05/31 Overweight 12/23/2015 Impaired fasting glucose 02/20/2006 Osteoarthritis 11/25/2005 Overview (06/07/2024): S/p TKR 2013 Encounters Date Type Department Care Team Description 07/01/2025 10:45 AM EST Office Visit Adult [address] [phone] Krystal Vizcarra PA Benign prostatic hyperplasia without lower urinary tract symptoms (Primary Dx); Mixed hyperlipidemia; Paroxysmal A-fib (CMS/HCC V24, CMS/HCC V28); Prediabetes; KALEB on CPAP; Tremor of both hands; Screening for diabetes mellitus; Screening cholesterol level; Need for prophylactic vaccination and inoculation against influenza 04/25/2025 8:30 AM EDT Consult Orthopedic Surgery - [place] [facility] [address] [place] [id number] Lani Ma PA Tremor of both hands (Primary Dx); Carpal tunnel syndrome of right wrist; Arthritis of carpometacarpal (CMC) joint of left thumb 04/14/2025 10:18 AM EDT - 04/14/2025 11:59 PM EDT Hospital Encounter [address] [phone] Bilateral carpal tunnel syndrome; Left wrist pain; Left elbow tendinitis Discharge Disposition: Home or Self Care 04/14/2025 10:17 AM EDT - 04/14/2025 11:59 PM EDT Hospital Encounter [address] [phone] Bilateral carpal tunnel syndrome; Left wrist pain; Left elbow tendinitis Discharge Disposition: Home or Self Care 04/14/2025 10:00 AM EDT Office Visit Adult [address] [phone] Krystal Vizcarra PA Left elbow tendinitis (Primary Dx); Bilateral carpal tunnel syndrome; Left wrist pain; Benign prostatic hyperplasia without lower urinary tract symptoms; Hematuria, unspecified type 04/14/2025 Telephone Adult Medicine [address] [phone] Keny Monzon MD 04/08/2025 Telephone Adult Medicine [address] [phone] Keny Monzon MD from Last 3 Months Immunizations Immunization Administration Dates Next Due Influenza Quadravalent, MDCK , 0.5ml, preservative free (Flucelvax) 6mo and older 08/14/2019 Influenza Quadrivalent, 0.5m l, preservative free (Fluarix; FluLaval; Fluzone) ages 6mo and older (Afluria) 3yo and older 04/25/2018 Influenza trivalent, 0.5mL (Fluad) 65yo and olde r 07/01/2025 Influenza trivalent, 0.5mL, preservative free (Fluarix; FluLaval; Fluzone) ages 6mo and older (Afluria) 3 years and older 04/27/2012,06/24/2008 Pneumococcal conjugate 13 va lent (Prevnar 13, PCV13) 2mo and older 03/01/2022 Pneumococcal conjugate 20 va lent (Prevnar 20, PCV 20) 2mo and older 04/30/2024 Td Tetanus diptheria (Tdvax) 7yo and older 11/25 Tdap Tetanus diptheria acell ular pertussis (Boostrix; Adacel) 7yo and older 04/25/2018,04/27/2012 Surgical History Surgery Date Site/Laterality Comments COLONOSCOPY 10/02/08 PROCEDURE: AL COLONOSCOPY STOMA DX INCLUDING COLLJ SPEC SPX; COMMENT: Up to cecum, regular preparation, normal colon exam Medical History Medical History Date Comments Hyperlipidemia 02/20/2006 DX:Hyperlipidemi a Other abnormal blood chemistry 02/20/2006 D X:Other abnormal blood chemistry Family History Medical History Relation Name Comments Heart attack Father Hypertension Father Relation Name Status Comments Father Social History Tobacco Use Types Packs/Day Years [...] care for your loved ones. For example, early childhood special educator or elderly care for an older adult? [...] on file Sexual Orientation Not on file Obstetrics History Last Filed Vital Signs Vital Sign Reading [...] Mass Index 28.09 07/01/2025 10:19 AM EST Plan of Treatment Upcoming Encounters Date Type Department Care Team (Late st Contact Info) Description 12/31/2025 11:30 AM EDT Office Visit Adult Medicine [facility] [address] [place] [address] Keny Monzon MD [address] [place] [address] Health Maintenance Due Date Last Done Comments Zoster Vaccines (1 of 2) 2006 Falls Risk Assessment 06/28/2022 Medicare Annual Wellness Visit 06/28/2022 COVID-19 Vaccine ( season) 2025 05/13/2023, 05/03/2022, 11/07/2021, Additional history exists Social Influencers of Health Screening 12/11/2025 12/11/2024 DTaP,Tdap,and Td Vaccines (4 - Td or Tdap) 04/25/2028 04/25/2018, 04/27/2012, 11/25/2005 Colorectal Cancer Screening: Colonoscopy 09/17/2029 09/17/2019, 09/17/2019 Cholesterol Screening (Lipid Panel) 12/26/2029 12/26/2024, 06/21/2023, 06/21/2023 RSV Immunization Adult Patients (1 - 1-dose 75+ series) 10/08/2031 Hepatitis C Screening Completed 12/23/2015 Pneumococcal Vaccine: 50+ Years Completed 04/30/2024, 03/01/2022 Depression Screening Completed 12/11/2024 Influenza Vaccine Completed 07/01/2025, , 05/03/2022, Additional history exists HIB Vaccines Aged Out No longer eligi ble based on patient's age to complete this topic HPV Vaccines Aged Out No longer eligi ble based on patient's age to complete this topic Hepatitis A Vaccines Aged Out No long er eligible based on patient's age to complete this topic Hepatitis B Vaccines Aged Out No long er eligible based on patient's age to complete this topic IPV Vaccines Aged Out No longer eligi ble based on patient's age to complete this topic MMR Vaccines Aged Out No longer eligi ble based on patient's age to complete this topic Meningococcal ACWY Vaccine Aged Out N o longer eligible based on patient's age to complete this topic Meningococcal B Vaccine Aged Out No l onger eligible based on patient's age to complete this topic RSV Immunization Patients Under 20 months Aged Out No longer eligible based on patient's age to complete this topic Varicella Vaccines Aged Out No longer eligible based on patient's age to complete this topic Procedures Procedure Name Priority Date/Time Associated Diagnosis Comments XR WRIST 3+ VIEWS LEFT Routine 04/14/2025 10:24 AM EDT Bilateral carpal tunnel syndrome Left wrist pain Left elbow tendinitis XR ELBOW 3+ VIEWS LEFT Routine 04/14/2025 10:24 AM EDT Bilateral carpal tunnel syndrome Left wrist pain Left elbow tendinitis LIPID PANEL WITH REFLEX TO DIRECT LDL Routine 12/26/2024 7:33 AM EDT Paroxysmal A-fib (CMS/HCC V24, CMS/HCC V28) Mixed hyperlipidemia Prediabetes KALEB on CPAP Benign prostatic hyperplasia without lower urinary tract symptoms Screening for thyroid disorder COLONOSCOPY Routine 09/17/2019 HEPATITIS C SCREENING Routine 12/23/2015 from Last 3 Months or Most Recently Relevant to Health Maintenance Results * XR Wrist 3+ Views Left (04/14/2025 10:24 AM EDT) Anatomical Region Laterality Modality Upper Extremities, Wrist Left Radiogr aphic Imaging 04/14/2025 11:2 7 PM EDT Narrative 04/14/2025 11:27 PM EDT Left wrist, 3 views. History pain. There are moderate degenerative changes in the first carpometacarpal joint. There is no visible fractures, dislocations or abnormal soft tissue calcifications. CONCLUSIONS: Degenerative changes as detailed. -------- FINAL REPORT -------- Dictated By: Laura Montesinos Dictated Date: 04/14/2025 23:27 ET Assigned Physician: Laura Montesinos Reviewed and Electronically Signed By: Laura Montesinos Signed Date: 04/14/2025 23:27 ET Workstation ID: [id number] Transcribed By: Self Edit Transcribed Date: 04/14/2025 23:27 ET Procedure Note Laura Montesinos MD - 04/14/2025 Left wrist, 3 views. History pain. There are moderate degenerative changes in the first carpometacarpaljoint. There is no visible fractures, dislocations or abnormal soft tissuecalcifications. CONCLUSIONS: Degenerative changes as detailed. -------- FINAL REPORT -------- Dictated By: Laura Montesinos Dictated Date: 04/14/2025 23:27 ET Assigned Physician: Laura Montesinos Reviewed and Electronically Signed By: Laura Montesinos Signed Date: 04/14/2025 23:27 ET Workstation ID: [id number] Transcribed By: Self Edit Transcribed Date: 04/14/2025 23:27 ET [facility] Zina James Carmita TORRE IM XR PROCEDURES Final Result * XR Elbow 3+ Views Left (04/14/2025 10:24 AM EDT) Anatomical Region Laterality Modality Upper Extremities, Elbow Left Radiogr aphic Imaging 04/14/2025 11:2 8 PM EDT Narrative 04/14/2025 11:28 PM EDT Left elbow, 3 views. History pain medially. There is no evidence of fractures, dislocations or abnormal soft tissue calcifications. There is no joint effusion. Alignment is maintained. CONCLUSIONS: Unremarkable radiographs of the left elbow. -------- FINAL REPORT -------- Dictated By: Laura Montesinos Dictated Date: 04/14/2025 23:28 ET Assigned Physician: Laura Montesinos Reviewed and Electronically Signed By: Laura Montesinos Signed Date: 04/14/2025 23:28 ET Workstation ID: [id number] Transcribed By: Self Edit Transcribed Date: 04/14/2025 23:28 ET Procedure Note Laura Montesinos MD - 04/14/2025 Left elbow, 3 views. History pain medially. There is no evidence of fractures, dislocations or abnormal soft tissuecalcifications. There is no joint effusion. Alignment is maintained. CONCLUSIONS: Unremarkable radiographs of the left elbow. -------- FINAL REPORT -------- Dictated By: Laura Montesinos Dictated Date: 04/14/2025 23:28 ET Assigned Physician: Laura Montesinos Reviewed and Electronically Signed By: Laura Montesinos Signed Date: 04/14/2025 23:28 ET Workstation ID: [id number] Transcribed By: Self Edit Transcribed Date: 04/14/2025 23:28 ET Krystal TORRE IMG XR PROCEDURES Final Result * Lipid panel with reflex to direct LDL (12/26/2024 7:33 AM EDT) Cholesterol 160 0 - 200 mg/dL LAB CHEMISTRY METHOD 12/26/2024 10:34 AM EDT [facility] Triglycerides 57 0 - 150 mg/dL LAB CHEMISTRY METHOD 12/26/2024 10:34 AM EDT [facility] HDL 59 >=40 mg/dL LAB CHEMISTRY METHOD 12/26/2024 10:34 AM EDT [facility] LDL Calculated 90 0 - 100 mg/dL LAB CHEMISTRY METHOD 12/26/2024 10:34 AM EDT [facility] VLDL Cholesterol Neal 11.4 mg/dL LAB CHEMISTRY METHOD 12/26/2024 10:34 AM EDT [facility] Non HDL Chol. (LDL+VLDL) 101 <145 mg/dL LAB CHEMISTRY METHOD 12/26/2024 10:34 AM EDT [facility] Chol/HDL Ratio 2.7 0.0 - 4.4 LAB CHEMISTRY METHOD 12/26/2024 10:34 AM EDT [facility] Blood Venous blood specimen / Unknown Venipuncture / Unknown 12/26/2024 7:33 AM EDT 12/26/2024 7:33 AM EDT Keny Monzon MD LAB BLOOD ORDERABLES Final Result [facility] [address] [place] [address], * Colonoscopy (09/17/2019) Colonoscopy abstracted, no interpretation Anatomical Region Laterality Modality Other Historical Provider HEALTH MAINTENANCE Final Result * Hepatitis C Screening (12/23/2015) [facility] Hepatitis C Screening abstracted Historical Provider HEALTH MAINTENANCE Final Result from Last 3 Months or Most Recently Relevant to Health Maintenance Insurance MEDICARE [facility] MEDICARE Care Teams Hospitality Workers Relationship Specialty Start Date End Date Keny Monzon MD [address] [place] [address] PCP - General Internal Medicine 11/19/21
== END 2025-07-02 10:47 | disposition home or self-care (01) ==
LOC: HO.HSM 09:54
PROVIDERS: PCP Physician Assistant; Visit Provider Psychiatry & Neurology Neurology
DX: G56.03 Carpal tunnel syndrome, bilateral upper limbs (principal); M19.021 Primary osteoarthritis, right elbow; M19.022 Primary osteoarthritis, left elbow
CPT/HCPCS: 99205